=== PATIENT | male | born 1990 | race Caucasian/White ===

== ENCOUNTER 2024-11-19 13:36 | Inpatient (IN) | payer SELFPAY ==
[~2024-11-19] VITALS: Ht 160 cm; Wt 61.9 kg
[2024-11-19 13:40] VITALS: O2SAT 98
[2024-11-19 15:18] LABS: BASOPHILS % 0.1 % (0.0-2.0); EOSINOPHILS % 0.0 % (0.0-5.0); HEMATOCRIT. 28.9 % (42.0-52.0); HEMOGLOBIN. 9.3 g/dL (14.0-18.0); LYMPHOCYTES % 9.0 % (20.0-50.0); MEAN PLATELET VOLUME 7.1 fl (7.4-10.4); MONOCYTES % 5.6 % (2.0-8.0); NEUTROPHILS % 85.3 % (40.0-76.0); PLATELET 383 x1000/uL (130-400); RED BLOOD CELL COUNT 3.06 mill/uL (4.7-6.1); RED CELL DISTRIBUTION WIDTH 14.8 % (11.6-14.6)
[2024-11-19 15:33] LABS: CREATININE 4.8 mg/dL (0.6-1.3)
[2024-11-19 15:34] LABS: TROPONIN I HIGH SENSITIVITY 27 ng/L (3.0-53)
[2024-11-19 15:35] LABS: ASPARTATE AMINOTRANSFERASE 19 IU/L (<34); BILIRUBIN DIRECT < 0.1 mg/dL (<=3.0)
[2024-11-19 15:36] LABS: BILIRUBIN TOTAL 0.3 mg/dL (0.1-1.0); PROTEIN TOTAL 7.0 g/dL (6.0-8.3)
[2024-11-19 15:40] LABS: UREA NITROGEN BLOOD 114 mg/dL (9-23)
[2024-11-19 16:42] LABS: *AMPHETAMINES SCREEN URINE NEGATIVE (NEGATIVE); *BARBITURATES SCREEN URINE NEGATIVE (NEGATIVE); *BENZODIAZEPINES SCREEN URINE NEGATIVE (NEGATIVE); *COCAINE SCREEN URINE NEGATIVE (NEGATIVE); CANNABINOID URINE SCREEN NEGATIVE (NEGATIVE); ECSTASY MDMA SCREEN URINE NEGATIVE (NEGATIVE); METHADONE URINE SCREEN NEGATIVE (NEGATIVE); OPIATES URINE SCREEN NEGATIVE (NEGATIVE); PHENCYCLIDINE URINE SCREEN NEGATIVE (NEGATIVE)
[2024-11-19] MEDS: SODIUM CHLORIDE 0.9% 1,000 ML IV ONE (16:43)
[2024-11-19] MEDS ORDERED: IPRATROPIUM/ALBUTEROL 0.5-3(2.5)MG/3ML NEB HHN PRN (18:15)
[2024-11-19] MEDS ORDERED: CLONIDINE 0.1MG TABLET PO PRN (18:15)
[2024-11-19] MEDS ORDERED: LORAZEPAM 2MG/ML UD SYRINGE IV PRN (18:15)
[2024-11-19] MEDS ORDERED: ACETAMINOPHEN 325MG TABLET PO PRN ×2 (18:15)
[2024-11-19] MEDS ORDERED: LORAZEPAM 1MG TABLET PO PRN (18:15)
[2024-11-19] MEDS ORDERED: DOCUSATE SODIUM 100MG CAPSULE PO PRN (18:15)
[2024-11-19] MEDS ORDERED: GUAIFENESIN 200MG/10ML SUGAR FREE UDC PO PRN (18:15)
[2024-11-19 18:29] LABS: CLARITY URINE TURBID (CLEAR); COLOR URINE YELLOW (YELLOW); GLUCOSE URINE NEGATIVE (NEGATIVE); KETONES URINE 2+ (NEGATIVE); LEUKOCYTE ESTERASE URINE 3+ (NEGATIVE); NITRITE URINE NEGATIVE (NEGATIVE); OCCULT BLOOD URINE 1+ (NEGATIVE); PH URINE >=9.0 (4.5-8.0); PROTEIN URINE 4+ (NEGATIVE); SPECIFIC GRAVITY URINE 1.015 (1.005-1.030); UROBILINOGEN URINE 0.2 E.U./dL (0.2-1.0)
[2024-11-19 18:57] LABS: AMORPHOUS SEDIMENT URINE 3+ /lpf; BACTERIA URINE 1+; RBC URINE 0-2 /hpf (0-2); SQUAMOUS EPITHELIAL CELL URINE RARE /lpf (RARE/1+)
[2024-11-19 18:58] LABS: MUCUS URINE 1+ /lpf (NONE/TRACE)
[2024-11-19] MEDS ORDERED: CEFTRIAXONE 1GM/50ML 50 ML IV SCH ×2 (19:00→20:00)
[2024-11-19 19:04] LABS: TRIPLE PHOSPHATE CRYSTAL URINE 2+ /lpf
[2024-11-19 20:00] VITALS: BP 107/44; PULSE 115; RESP 18; TEMP 36.4; O2SAT 98
[2024-11-19] MEDS ORDERED: PANTOPRAZOLE SODIUM 40 MG/VIAL IV SCH (20:00)
[2024-11-19 20:13] LABS: PHOSPHORUS 5.1 mg/dL (2.5-4.9)
[2024-11-19 20:15] LABS: FOLIC ACID (FOLATE) SERUM 16.37 ng/mL (>5.38); VITAMIN B12 SERUM 1215 pg/mL (211-911)
[2024-11-19] MEDS ORDERED: PIPERACILLIN/TAZO 3.375G/50ML 50 ML IV SCH (21:00)
[2024-11-19 21:05] VITALS: BP 107/44; PULSE 115; RESP 18; TEMP 36.418
[2024-11-19] MEDS: SODIUM CHLORIDE 0.45% 1,000 ML IV SCH (23:03)
[2024-11-19] MEDS: CHLORDIAZEPOXIDE 25MG CAPSULE PO SCH (23:03)
[2024-11-19] MEDS: FAMOTIDINE 20MG/2ML VIAL IV SCH (23:03)
[2024-11-19] MEDS: THIAMINE HCL 100 MG/1 ML 2ML VIAL IM SCH (23:04)
[2024-11-20] VITALS: BP 147/77; PULSE 109; RESP 18; TEMP 36.7; O2SAT 98
[2024-11-20 00:51] LABS: TROPONIN I HIGH SENSITIVITY 31 ng/L (3.0-53)
[2024-11-20] MEDS: CEFTRIAXONE 1GM/50ML 50 ML IV SCH (01:29)
[2024-11-20 04:00] VITALS: BP 129/57; PULSE 97; RESP 18; TEMP 36.9; O2SAT 98
[2024-11-20 07:47] LABS: BASOPHILS % 0.3 % (0.0-2.0); EOSINOPHILS % 0.1 % (0.0-5.0); HEMATOCRIT. 23.9 % (42.0-52.0); HEMOGLOBIN. 7.8 g/dL (14.0-18.0); LYMPHOCYTES % 12.9 % (20.0-50.0); MEAN PLATELET VOLUME 7.4 fl (7.4-10.4); MONOCYTES % 9.4 % (2.0-8.0); NEUTROPHILS % 77.3 % (40.0-76.0); PLATELET 280 x1000/uL (130-400); RED BLOOD CELL COUNT 2.56 mill/uL (4.7-6.1); RED CELL DISTRIBUTION WIDTH 14.8 % (11.6-14.6)
[2024-11-20 08:00] VITALS: BP 119/50; PULSE 106; RESP 20; TEMP 36.7; O2SAT 99
[2024-11-20 08:16] LABS: T4 FREE 1.05 ng/dL (0.89-1.76)
[2024-11-20 08:18] LABS: CREATININE 3.7 mg/dL (0.6-1.3); TRIGLYCERIDE 181.0 mg/dL (0-150); UREA NITROGEN BLOOD 86.0 mg/dL (9-23)
[2024-11-20 08:19] LABS: LDL CHOLESTEROL 52.0 mg/dL (5-100)
[2024-11-20] MEDS ORDERED: THIAMINE HCL 100 MG/1 ML 2ML VIAL IM SCH (09:00)
[2024-11-20 09:21] LABS: SODIUM URINE RANDOM 55 mEq/L
[2024-11-20] MEDS: FOLIC ACID 1MG TABLET PO SCH (09:44)
[2024-11-20] MEDS: MULTIVITAMINS,THER W-MINERALS TABLET PO SCH (09:44)
[2024-11-20 09:53] LABS: OSMOLALITY URINE 533 mOsm/kg (500-850)
[2024-11-20 11:48] LABS: BG BASE EXCESS -9.5 mmol/L (-2.0-3.0); BG CARBOXYHEMOGLOBIN 1.0 % (0.5-1.5); BG DEOXYHEMOGLOBIN 2.1 % (0.0-5.0); BG FRACTION INSPIRED OXYGEN 21; BG HCO3 ACT 15.5 mmol/L (21.0-28.0); BG METHEMOGLOBIN 0.3 % (0.5-1.5); BG OXYGEN SATURATION 97.9 % (94.0-98.0); BG OXYHEMOGLOBIN 96.6 % (94.0-98.0); BG PCO2 30.4 mmHg (35.0-48.0); BG PH 7.326 (7.350-7.450); BG PO2 108.0 mmHg (83.0-108.0); BG SAMPLE SITE RIGHT BRACHIAL; BG TOTAL HEMOGLOBIN 7.3 g/dL (13.5-17.5); BG VENT MODE ROOM AIR
[2024-11-20 12:00] VITALS: BP 148/85; PULSE 100; RESP 20; TEMP 36.8; O2SAT 100
[2024-11-20 16:00] VITALS: BP 131/66; PULSE 87; RESP 18; TEMP 36.2; O2SAT 100
[2024-11-20 17:34] LABS: ASPARTATE AMINOTRANSFERASE 11 IU/L (<34); BILIRUBIN DIRECT < 0.1 mg/dL (<=3.0)
[2024-11-20 17:36] LABS: BILIRUBIN TOTAL 0.3 mg/dL (0.1-1.0); PROTEIN TOTAL 5.1 g/dL (6.0-8.3)
[2024-11-20 18:59] LABS: CREATININE URINE RANDOM 22.4 mg/dL
[2024-11-20 20:00] VITALS: BP 135/75; PULSE 96; RESP 18; TEMP 36.7; O2SAT 100
[2024-11-20 20:08] LABS: PROTEIN URINE RANDOM 172.0 mg/dL
[2024-11-20] MEDS: MUPIROCIN 2% OINT 22GM TOP SCH (20:46)
[2024-11-21] VITALS (7 sets, daily range): BP systolic 118–169; BP diastolic 52–72; PULSE 85–108; RESP 18–20; TEMP 36.3–37; O2SAT 98–100
[2024-11-21 09:11] LABS: BASOPHILS % 0.3 % (0.0-2.0); EOSINOPHILS % 0.9 % (0.0-5.0); HEMATOCRIT. 21.2 % (42.0-52.0); LYMPHOCYTES % 13.7 % (20.0-50.0); MEAN PLATELET VOLUME 7.6 fl (7.4-10.4); MONOCYTES % 6.8 % (2.0-8.0); NEUTROPHILS % 78.3 % (40.0-76.0); PLATELET 213 x1000/uL (130-400); RED BLOOD CELL COUNT 2.27 mill/uL (4.7-6.1); RED CELL DISTRIBUTION WIDTH 14.1 % (11.6-14.6)
[2024-11-21 09:34] LABS: HEMOGLOBIN. 7.0 g/dL (14.0-18.0)
[2024-11-21 09:38] LABS: CREATININE 3.0 mg/dL (0.6-1.3); UREA NITROGEN BLOOD 66 mg/dL (9-23)
[2024-11-21 09:40] LABS: PHOSPHORUS 2.6 mg/dL (2.5-4.9)
[2024-11-21] MEDS: MAGNESIUM 2 G PREMIX 50 ML IV SCH (18:00)
[2024-11-22] VITALS (10 sets, daily range): BP systolic 117–160; BP diastolic 53–84; PULSE 81–94; RESP 17–20; TEMP 36.28068–36.6; O2SAT 97–100
[2024-11-22 06:58] LABS: CREATININE 2.9 mg/dL (0.6-1.3); UREA NITROGEN BLOOD 53 mg/dL (9-23)
[2024-11-22 07:00] LABS: PHOSPHORUS 2.7 mg/dL (2.5-4.9)
[2024-11-22 07:04] LABS: BASOPHILS % 0.3 % (0.0-2.0); EOSINOPHILS % 3.9 % (0.0-5.0); LYMPHOCYTES % 19.2 % (20.0-50.0); MEAN PLATELET VOLUME 7.8 fl (7.4-10.4); MONOCYTES % 7.6 % (2.0-8.0); NEUTROPHILS % 69.0 % (40.0-76.0); PLATELET 188 x1000/uL (130-400); RED BLOOD CELL COUNT 2.16 mill/uL (4.7-6.1); RED CELL DISTRIBUTION WIDTH 13.7 % (11.6-14.6)
[2024-11-22 08:33] LABS: HEMATOCRIT. 20.0 % (42.0-52.0); HEMOGLOBIN. 6.6 g/dL (14.0-18.0)
[2024-11-22] MEDS: TAMSULOSIN HCL 0.4MG SR CAPSULE PO SCH (09:24)
[2024-11-22] MEDS: PANTOPRAZOLE SODIUM 40 MG/VIAL IV SCH (14:15)
[2024-11-23] VITALS (12 sets, daily range): BP systolic 113–161; BP diastolic 57–84; PULSE 81–107; RESP 14–18; TEMP 35.6–36.7; O2SAT 96–100
[2024-11-23] MEDS: THIAMINE HCL 100MG TABLET PO SCH (08:31)
[2024-11-23 13:42] LABS: BASOPHILS % 0.2 % (0.0-2.0); CREATININE 3.2 mg/dL (0.6-1.3); EOSINOPHILS % 4.1 % (0.0-5.0); LYMPHOCYTES % 17.7 % (20.0-50.0); MEAN PLATELET VOLUME 7.5 fl (7.4-10.4); MONOCYTES % 7.1 % (2.0-8.0); NEUTROPHILS % 70.9 % (40.0-76.0); PLATELET 224 x1000/uL (130-400); RED BLOOD CELL COUNT 2.30 mill/uL (4.7-6.1); RED CELL DISTRIBUTION WIDTH 14.3 % (11.6-14.6)
[2024-11-23 13:43] LABS: UREA NITROGEN BLOOD 47 mg/dL (9-23)
[2024-11-23 13:44] LABS: INR 1.0
[2024-11-23 13:45] LABS: PHOSPHORUS 3.2 mg/dL (2.5-4.9)
[2024-11-23 13:50] LABS: HEMATOCRIT. 21.1 % (42.0-52.0); HEMOGLOBIN. 6.9 g/dL (14.0-18.0)
[2024-11-24] VITALS: BP 142/67; PULSE 85; RESP 18; TEMP 36.2; O2SAT 98
[2024-11-24 04:00] VITALS: BP 158/80; PULSE 93; RESP 18; TEMP 36.6; O2SAT 98
[2024-11-24 07:48] LABS: CREATININE 4.1 mg/dL (0.6-1.3); UREA NITROGEN BLOOD 45 mg/dL (9-23)
[2024-11-24 07:50] LABS: PHOSPHORUS 3.6 mg/dL (2.5-4.9)
[2024-11-24 08:00] VITALS: BP 158/78; PULSE 82; RESP 17; TEMP 36.3; O2SAT 97
[2024-11-24] MEDS ORDERED: PROPOFOL 200MG/20ML VIAL IV ONE (08:17)
[2024-11-24] MEDS ORDERED: GLYCOPYRROLATE 0.2 MG/ML 2ML VIAL ONE (08:38)
[2024-11-24] MEDS ORDERED: NEOSTIGMINE METHYLSULFATE 1MG/ML 10 ML VIAL ONE (08:38)
[2024-11-24] MEDS ORDERED: ROCURONIUM BROMIDE 10MG/ML VIAL 5ML IV ONE (08:38)
[2024-11-24] MEDS ORDERED: PHENYLEPHRINE HCL 10MG/ML 1ML IV ONE (09:08)
[2024-11-24] MEDS ORDERED: FENTANYL CITRATE/PF 50MCG/ML 2ML VIAL ONE (10:18)
[2024-11-24] MEDS ORDERED: ONDANSETRON HCL 4MG/2ML INJ IV PRN (12:15)
[2024-11-24] MEDS ORDERED: HYDROMORPHONE HCL/PF 1MG/ML INJ IV PRN (12:15)
[2024-11-24 16:00] VITALS: BP 110/68; PULSE 71; RESP 18; TEMP 36.2; O2SAT 100
[2024-11-24 18:59] LABS: HEMATOCRIT. 26.1 % (42.0-52.0); HEMOGLOBIN. 8.5 g/dL (14.0-18.0); MEAN PLATELET VOLUME 7.9 fl (7.4-10.4); PLATELET 246 x1000/uL (130-400); RED BLOOD CELL COUNT 2.83 mill/uL (4.7-6.1); RED CELL DISTRIBUTION WIDTH 15.5 % (11.6-14.6)
[2024-11-24 20:00] VITALS: BP 120/66; PULSE 73; RESP 18; TEMP 36.2; O2SAT 100
[2024-11-24] MEDS: CHLORDIAZEPOXIDE 25MG CAPSULE PO SCH (22:12)
[2024-11-25] VITALS (7 sets, daily range): BP systolic 110–138; BP diastolic 50–71; PULSE 57–84; RESP 16–18; TEMP 26.61324–36.7; O2SAT 98–100
[2024-11-25 00:16] LABS: LYMPHOCYTES % MANUAL 9.0 % (20.0-50.0); MONOCYTES % MANUAL 2.0 % (2.0-8.0); NEUTROPHILS % MANUAL 89.0 % (45.0-75.0); PLATELET ESTIMATE NORMAL
[2024-11-25 07:00] LABS: UREA NITROGEN BLOOD 30 mg/dL (9-23)
[2024-11-25 07:03] LABS: BILIRUBIN DIRECT < 0.1 mg/dL (<=3.0); BILIRUBIN TOTAL < 0.2 mg/dL (0.1-1.0); PHOSPHORUS 2.0 mg/dL (2.5-4.9); PROTEIN TOTAL 3.4 g/dL (6.0-8.3)
[2024-11-25 07:06] LABS: BASOPHILS % 0.1 % (0.0-2.0); EOSINOPHILS % 0.7 % (0.0-5.0); LYMPHOCYTES % 19.5 % (20.0-50.0); MEAN PLATELET VOLUME 8.0 fl (7.4-10.4); MONOCYTES % 6.7 % (2.0-8.0); NEUTROPHILS % 73.0 % (40.0-76.0); PLATELET 200 x1000/uL (130-400); RED BLOOD CELL COUNT 2.11 mill/uL (4.7-6.1); RED CELL DISTRIBUTION WIDTH 14.8 % (11.6-14.6)
[2024-11-25 08:01] LABS: ASPARTATE AMINOTRANSFERASE < 8 IU/L (<34); CREATININE 2.5 mg/dL (0.6-1.3)
[2024-11-25 08:06] LABS: HEMATOCRIT. 19.2 % (42.0-52.0); HEMOGLOBIN. 6.4 g/dL (14.0-18.0)
[2024-11-25] MEDS ORDERED: KCL 20MEQ/100ML PREMIX 100 ML IV SCH (09:00)
[2024-11-25] MEDS: MAGNESIUM 4 G PREMIX 100 ML IV SCH (09:16)
[2024-11-25] MEDS: POTASSIUM CHLORIDE 20MEQ TABLET SR PO NR (10:41)
[2024-11-25] MEDS: SODIUM CHLORIDE 0.9% 1,000 ML IV SCH (10:41)
[2024-11-25] MEDS: CALCIUM GLUCONATE 1GM PREMIX 50 ML IV SCH (11:00)
[2024-11-25 11:01] LABS: BG BASE EXCESS -6.5 mmol/L (-2.0-3.0); BG CARBOXYHEMOGLOBIN 1.1 % (0.5-1.5); BG DEOXYHEMOGLOBIN 2.3 % (0.0-5.0); BG FRACTION INSPIRED OXYGEN 21; BG HCO3 ACT 18.0 mmol/L (21.0-28.0); BG METHEMOGLOBIN 0.0 % (0.5-1.5); BG OXYGEN SATURATION 97.7 % (94.0-98.0); BG OXYHEMOGLOBIN 96.6 % (94.0-98.0); BG PCO2 31.5 mmHg (35.0-48.0); BG PH 7.375 (7.350-7.450); BG PO2 101.3 mmHg (83.0-108.0); BG SAMPLE SITE RIGHT RADIAL; BG TOTAL HEMOGLOBIN 7.8 g/dL (13.5-17.5); BG VENT MODE ROOM AIR
[2024-11-25] MEDS: POTASSIUM PHOSPHATE 30 MMOL in SODIUM CHLORIDE 0.9% 490 ML IV NR (12:18)
[2024-11-25 19:04] LABS: UREA NITROGEN BLOOD 37.0 mg/dL (9-23)
[2024-11-25 19:07] LABS: CREATININE 3.5 mg/dL (0.6-1.3)
[2024-11-25] MEDS: LACTULOSE 20G/30ML UDC PO SCH (21:30)
[2024-11-26] VITALS: BP 142/80; PULSE 85; RESP 17; TEMP 36.7; O2SAT 99
[2024-11-26 04:00] VITALS: BP 122/65; PULSE 72; RESP 18; TEMP 36.6; O2SAT 97
[2024-11-26 07:18] LABS: BASOPHILS % 0.3 % (0.0-2.0); EOSINOPHILS % 3.0 % (0.0-5.0); HEMATOCRIT. 28.2 % (42.0-52.0); HEMOGLOBIN. 9.4 g/dL (14.0-18.0); LYMPHOCYTES % 25.5 % (20.0-50.0); MEAN PLATELET VOLUME 7.8 fl (7.4-10.4); MONOCYTES % 7.9 % (2.0-8.0); NEUTROPHILS % 63.3 % (40.0-76.0); PLATELET 259 x1000/uL (130-400); RED BLOOD CELL COUNT 3.02 mill/uL (4.7-6.1); RED CELL DISTRIBUTION WIDTH 16.3 % (11.6-14.6)
[2024-11-26 07:23] LABS: CREATININE 3.0 mg/dL (0.6-1.3); UREA NITROGEN BLOOD 38 mg/dL (9-23)
[2024-11-26 07:25] LABS: PHOSPHORUS 3.0 mg/dL (2.5-4.9)
[2024-11-26 08:00] VITALS: BP 124/74; PULSE 77; RESP 18; TEMP 36.2; O2SAT 99
[2024-11-26 12:00] VITALS: BP 119/68; PULSE 86; RESP 18; TEMP 36; O2SAT 96
[2024-11-26] MEDS: SODIUM BICARBONATE 650MG TABLET PO SCH (13:17)
[2024-11-26] MEDS: SODIUM BICARBONATE 8.4% 50MEQ/50ML SYR IV NR (13:39)
[2024-11-26 16:00] VITALS: BP 136/84; PULSE 82; RESP 18; TEMP 36.3; O2SAT 97
[2024-11-26 20:00] VITALS: BP 142/81; PULSE 86; RESP 17; TEMP 36.6; O2SAT 100
[2024-11-27] VITALS: BP 147/77; PULSE 87; RESP 17; TEMP 36.6; O2SAT 100
[2024-11-27] MEDS: ONDANSETRON HCL 4MG/2ML INJ IV PRN (02:09)
[2024-11-27 04:00] VITALS: BP 125/64; PULSE 83; RESP 16; TEMP 36.6; O2SAT 99
[2024-11-27 08:00] VITALS: BP 118/76; PULSE 76; RESP 18; TEMP 35.8; O2SAT 98
[2024-11-27 11:35] LABS: BASOPHILS % 0.4 % (0.0-2.0); EOSINOPHILS % 2.5 % (0.0-5.0); HEMATOCRIT. 27.6 % (42.0-52.0); HEMOGLOBIN. 9.2 g/dL (14.0-18.0); LYMPHOCYTES % 18.0 % (20.0-50.0); MEAN PLATELET VOLUME 7.1 fl (7.4-10.4); MONOCYTES % 8.2 % (2.0-8.0); NEUTROPHILS % 70.9 % (40.0-76.0); PLATELET 274 x1000/uL (130-400); RED BLOOD CELL COUNT 2.98 mill/uL (4.7-6.1); RED CELL DISTRIBUTION WIDTH 15.8 % (11.6-14.6)
[2024-11-27 11:48] LABS: CREATININE 2.3 mg/dL (0.6-1.3)
[2024-11-27 11:49] LABS: UREA NITROGEN BLOOD 25 mg/dL (9-23)
[2024-11-27 11:51] LABS: PHOSPHORUS 1.7 mg/dL (2.5-4.9)
[2024-11-27 11:56] LABS: INR 1.0
[2024-11-27 12:00] VITALS: BP 128/67; PULSE 81; RESP 18; TEMP 36.2; O2SAT 97
[2024-11-27] MEDS ORDERED: TAMS-54 PO (14:31)
[2024-11-27] MEDS ORDERED: THIA100T72 PO (14:31)
[2024-11-27] MEDS ORDERED: PROT40 MT (14:31)
[2024-11-27 16:00] VITALS: BP 130/66; PULSE 82; RESP 18; TEMP 36.2; O2SAT 97
[2024-11-27] MEDS: MAGNESIUM 2 G PREMIX 50 ML IV NR (18:30)
[2024-11-27] MEDS: POTASSIUM PHOSPHATE 20 MMOL in DEXT 5% WATER 243.3333 ML IV NR (18:30)
[2024-11-27 20:00] VITALS: BP 156/74; PULSE 72; RESP 17; TEMP 36.6; O2SAT 100
[2024-11-28] VITALS (7 sets, daily range): BP systolic 115–141; BP diastolic 58–78; PULSE 77–96; RESP 17–18; TEMP 35.8–36.6; O2SAT 98–99
[2024-11-28 07:53] LABS: BASOPHILS % 0.4 % (0.0-2.0); EOSINOPHILS % 2.5 % (0.0-5.0); HEMATOCRIT. 26.5 % (42.0-52.0); HEMOGLOBIN. 8.9 g/dL (14.0-18.0); LYMPHOCYTES % 21.7 % (20.0-50.0); MEAN PLATELET VOLUME 7.5 fl (7.4-10.4); MONOCYTES % 9.5 % (2.0-8.0); NEUTROPHILS % 65.9 % (40.0-76.0); PLATELET 268 x1000/uL (130-400); RED BLOOD CELL COUNT 2.85 mill/uL (4.7-6.1); RED CELL DISTRIBUTION WIDTH 15.6 % (11.6-14.6)
[2024-11-28 09:06] LABS: CREATININE 2.3 mg/dL (0.6-1.3)
[2024-11-28 09:07] LABS: UREA NITROGEN BLOOD 21 mg/dL (9-23)
[2024-11-28 09:09] LABS: PHOSPHORUS 3.0 mg/dL (2.5-4.9)
[2024-11-29] VITALS: BP 139/67; PULSE 79; RESP 17; TEMP 36.4; O2SAT 100
[2024-11-29 04:00] VITALS: BP 145/72; PULSE 86; RESP 17; TEMP 36.5; O2SAT 99
[2024-11-29 08:00] VITALS: BP 136/73; PULSE 84; RESP 20; TEMP 36.6; O2SAT 98
[2024-11-29 11:46] VITALS: BP 136/73; PULSE 84; RESP 20; TEMP 97.8
[2024-11-29 12:00] VITALS: BP 146/79; PULSE 84; RESP 18; TEMP 36.4; O2SAT 100
== END 2024-11-29 13:00 | disposition home or self-care (01) | DRG 720 ==
LOC: ER 13:36 → EDBEDREQTM 17:45 → EDBEDREQ 17:45 → ENRESERV 18:43 → 6WST 21:26
PROVIDERS: ADMIT Internal Medicine; ATTEND Internal Medicine
PROC: 30233N1 Transfusion of Nonautologous Red Blood Cells into Peripheral Vein, Percutaneous Approach (ICD-10-PCS; principal; 2024-11-22)
PROC: 0T7D8ZZ Dilation of Urethra, Via Natural or Artificial Opening Endoscopic (ICD-10-PCS; 2024-11-24)
PROC: 0TJB8ZZ Inspection of Bladder, Via Natural or Artificial Opening Endoscopic (ICD-10-PCS; 2024-11-24)
DX: A41.9 Sepsis, unspecified organism (principal); M62.82 Rhabdomyolysis; G93.40 Encephalopathy, unspecified; E87.0 Hyperosmolality and hypernatremia; E88.09 Other disorders of plasma-protein metabolism, not elsewhere classified; E83.39 Other disorders of phosphorus metabolism; N17.9 Acute kidney failure, unspecified; N18.9 Chronic kidney disease, unspecified; E86.0 Dehydration; N13.8 Other obstructive and reflux uropathy; B96.89 Other specified bacterial agents as the cause of diseases classified elsewhere; D64.9 Anemia, unspecified; E05.90 Thyrotoxicosis, unspecified without thyrotoxic crisis or storm; F19.10 Other psychoactive substance abuse, uncomplicated; N13.6 Pyonephrosis; F10.139 Alcohol abuse with withdrawal, unspecified; Y90.0 Blood alcohol level of less than 20 mg/100 ml; E83.42 Hypomagnesemia; N35.919 Unspecified urethral stricture, male, unspecified site; N40.0 Benign prostatic hyperplasia without lower urinary tract symptoms; Z59.00 Homelessness unspecified; Z82.49 Family history of ischemic heart disease and other diseases of the circulatory system; Z86.73 Personal history of transient ischemic attack (TIA), and cerebral infarction without residual deficits; Z78.1 Physical restraint status
CPT/HCPCS: 36415; 36600; 71045; 74176; 76700; 76770; 76857; 80048; 80061; 80076; 80305; 80320; 81003; 82140; 82330; 82375; 82550; 82570; 82607; 82728; 82746; 82805; 83036; 83540; 83550; 83605; 83735; 83880; 83930; 83935; 84100; 84145; 84153; 84156; 84300; 84439; 84443; 84484; 85014; 85018; 85025; 85044; 85384; 86850; 86900; 86920; 87070; 93005; 93970; 96360; 97162; 99291; A4606; C1769; J0612; J0696; J1308; J2371; J2405; J2470; J2704; J2710; J3010; J3411; J3475; J3490; J7030; J7040; J7060; P9016; G0480